=== PATIENT | male | born 1955 | race American Indian/Alaskan Native ===

== ENCOUNTER 2022-05-14 21:49 | Emergency (ER) | payer MEDICARE ==
[2022-05-14] MEDS ORDERED: ALBUTEROL 2.5 MG/3 ML NEBU IH ONE (22:58)
[2022-05-14] MEDS ORDERED: IPRATROPIUM 0.02% NEBU 2.5 ML IH ONE (22:58)
[2022-05-14] MEDS ORDERED: ACETAMINOPHEN 325 MG TAB PO STA (22:59)
--- NOTE | 2022-05-14 23:00 | Emergency Department Report ---
ED General Adult HPI - General Chief complaint: Dyspnea/Respdistress Stated complaint: HAYDE PUI?: No Time Seen by Provider: 05/14/22 22:52 Source: patient, RN notes reviewed Mode of arrival: Stretcher Limitations: Physical Limitation - History of Present Illness Initial comments: The patient was evaluated in the emergency department for symptoms described in the history of present illness. He/she was evaluated in the context of the global COVID-19 pandemic, which necessitated consideration that the patient might be at risk for infection with the virus that causes COVID-19. Institutional protocols and algorithms that pertain to the evaluation of patients at risk for COVID-19 are in a state of rapid change based on inform ation released by regulatory bodies including the CDC and federal and state organizations. These policies and algorithms were followed during the patient's care in the emergency department. Please note that these policies, procedures and recommendations changed on a rapid basis. This is a pleasant and cooperative 66-year-old gentleman. He has a history of asthma, COPD, CVA, and stroke. He was recently hospitalized for stroke at [facility]. He does not know if he was at [facility] or [place]. He reports left-sided hemiparesis after the stroke. Apparently, was put on oxygen prior to discharge, and is currently in a skilled nursing on home oxygen. His primary care doctor is Dr. Asya Anguiano. The patient is originally from [facility]. He also appears to have a history of congestive heart failure, with unknown ejection fraction. The patient is about 1 week status post discharge from the hospital. He is COVID-19 vaccinated, but has not received his booster. He presents to the department today with a complaint of shortness of breath. He has left-sided shoulder pain. He denies hematemesis and bright red blood per rectum. He denies headache, neck pain, chest pain, abdominal pain, right-sided weakness and numbness. As per verbal report from nursing team, reportedly received nebulizer therapy from EMS. [facility] paperwork indicates that the patient has a history of A. fib, and is currently on Eliquis -: Gradual Location: left, upper extremity Radiation: non-radiation Quality: aching Improves with: rest Worsens with: movement - Related Data Previous Rx's Medication Instructions Recorded Last Taken Type Albuterol Sulfate [Proair 90 mcg IH Q4HR PRN #2 aer.pow.ba 08/27/22 Unknown Rx Respiclick] Ipratropium (Nf) [Atrovent] 2 puff IH Q6HR PRN #1 inha 05/15/22 Unknown Rx Magnesium Oxide [Mag-Ox] 400 mg PO QDAY #30 tab 05/15/22 Unknown Rx predniSONE [Deltasone] 40 mg PO QDAY #8 tab 05/15/22 Unknown Rx Allergies Allergy/AdvReac Type Severity Reaction Status Date / Time Penicillins Allergy Rash Verified 05/14/22 22:45 ED Review of Systems ROS: Stated complaint: HAYDE Other details as noted in HPI Constitutional: malaise, weakness. denies: fever ENT: congestion. denies: dental pain Respiratory: cough, shortness of breath, SOB with exertion, SOB at rest. denies: wheezing Cardiovascular: denies: chest pain Gastrointestinal: denies: abdominal pain, hematemesis, melena, hematochezia Genitourinary: denies: dysuria Musculoskeletal: arthralgia, myalgia Neurological: weakness (Chronic) ED Past Medical Hx - Past Medical History Previous Medical History?: Yes Hx Hypertension: Yes Hx CVA: Yes Hx Asthma: Yes Hx COPD: Yes Additional medical history: LEFT HEMIPARERESIS - Surgical History Past Surgical History?: No - Social History Smoking Status: Never Smoker Substance Use Type: None - Medications Home Medications: Home Medications Medication Instructions Recorded Confirmed Last Taken Type Albuterol Sulfate [Proair 90 mcg IH Q4HR PRN #2 aer.pow.ba 05/15/22 Unknown Rx Respiclick] Ipratropium (Nf) [Atrovent] 2 puff IH Q6HR PRN #1 inha 05/15/22 Unknown Rx Magnesium Oxide [Mag-Ox] 400 mg PO QDAY #30 tab 05/15/22 Unknown Rx predniSONE [Deltasone] 40 mg PO QDAY #8 tab 05/15/22 Unknown Rx ED Physical Exam - General Limitations: Physical Limitation General appearance: alert, in no apparent distress - Head Head exam: Present: atraumatic, normocephalic - Eye Eye exam: Present: normal appearance, EOMI. Absent: nystagmus - ENT ENT exam: Present: mucous membranes dry, normal external ear exam - Neck Neck exam: Present: normal inspection, full ROM. Absent: tenderness, meningismus - Respiratory Respiratory exam: Present: decreased breath sounds. Absent: respiratory distress, wheezes, rales, rhonchi - Cardiovascular Cardiovascular Exam: Present: regular rate, normal rhythm, normal heart sounds. Absent: bradycardia, tachycardia, irregular rhythm, systolic murmur, diastolic murmur, rubs, gallop - GI/Abdominal GI/Abdominal exam: Present: soft. Absent: distended, tenderness, guarding, rebound, rigid, pulsatile mass - Rectal Rectal exam: Present: deferred - Extremities Exam Extremities exam: Present: normal inspection, full ROM (Right arm and right leg), other (2+ pulses noted in the bilateral upper and lower extremities. There is no palpable cord. negative Homans sign. Muscular compartments are soft. The pelvis is stable.). Absent: pedal edema, calf tenderness - Back Exam Back exam: Present: normal inspection. Absent: tenderness, CVA tenderness (R), CVA tenderness (L), paraspinal tenderness, vertebral tenderness - Neurological Exam Neurological exam: Present: alert, motor sensory deficit (Left-sided hemiparesis), other (There is no facial droop. The tongue is midline. EOMI. Left-sided hemiparesis. 5/5 strength right arm and right leg) - Psychiatric Psychiatric exam: Present: flat affect - Skin Skin exam: Present: warm, dry, intact, normal color. Absent: rash ED Course Vital Signs 05/14/22 05/14/22 05/14/22 21:49 23:05 23:35 Temperature 97.7 F 97.7 F Pulse Rate 77 75 Pulse Rate [ Bilateral Throughout] Respiratory 20 19 Rate Respiratory Rate [Bilateral Throughout] Blood Pressure 132/78 130/90 Blood Pressure [Left] O2 Sat by Pulse 96 93 94 Oximetry 05/15/22 05/15/22 05/15/22 00:16 01:17 03:06 Temperature Pulse Rate 77 75 Pulse Rate [ 72 Bilateral Throughout] Respiratory 18 18 Rate Respiratory 20 Rate [Bilateral Throughout] Blood Pressure Blood Pressure 116/65 116/72 [Left] O2 Sat by Pulse 97 97 Oximetry 05/15/22 05/15/22 05/15/22 05:56 06:53 07:57 Temperature Pulse Rate 67 69 78 Pulse Rate [ Bilateral Throughout] Respiratory 18 15 18 Rate Respiratory Rate [Bilateral Throughout] Blood Pressure Blood Pressure 120/82 113/78 103/73 [Left] O2 Sat by Pulse 97 98 97 Oximetry 05/15/22 09:43 Temperature Pulse Rate 57 L Pulse Rate [ Bilateral Throughout] Respiratory 17 Rate Respiratory Rate [Bilateral Throughout] Blood Pressure Blood Pressure 129/90 [Left] O2 Sat by Pulse 98 Oximetry - Reevaluation(s) Reevaluation #1: 05/14/22 23:24 Differential diagnosis, including but not limited to: COPD, CHF, pneumonia, pneumothorax, anemia, A. fib, paroxysmal, pulmonary embolism, subacute stroke Assessment and plan: 66-year-old gentleman, with chronic respiratory failure on home oxygen, who is anticoagulated on Eliquis, presenting with essentially painless shortness of breath, with exception of nontraumatic left-sided shoulder pain. On room air, saturating 88%. EKG markedly abnormal without prior for comparison. I appreciate that this patient is systemically anticoagulated. However, given hemiparesis, recent hospitalization, EKG morphology, clear lungs, we are concerned about pulmonary embolism. Do not feel that the patient can be adequately risk stratified by D- dimer alone. We will therefore obtain a CT scan of the chest. Given that patient may have a pulmonary embolism, and may require additional anticoagulation, and also had a recent stroke, we will obtain noncontrast CT scan of the brain, to assess for possible interval change, in case patient requires anticoagulation We will treat the patient's symptoms with albuterol, Atrovent, and Tylenol, and obtain x-ray of the chest and x-ray of the shoulder. We will reassess. I discussed this plan of care with the patient. He is agreeable to the plan of care 05/15/22 01:29 CT scan chest shows chronic findings. No pulmonary embolism identified Possible neoplasm suggested ct head appreciated called up skilled nursing, [facility], to ask when last took eliquis He last took Eliquis at 9 AM on May 14, 2022 Dose is 5 mg 05/15/22 01:49 I discussed the case with neurosurgery at [facility], Dr. Samuel Munguia. We discussed the patient's history, physical, laboratory studies and imaging studies and clinical impression. He has also personally evaluated this patient CT scan of the brain. He advises that this is may be a subacute hemorrhagic transformation. He advises that from his perspective, this can be adequately managed as an outpatient, presuming no change in examination, no change in CT scan of the brain. He advises repeat CT scan of the brain, [address] scan of the brain. He request call back once repeat CT scan has been obtained. He further advises that he would be very happy to see the patient in the clinic, and advises that from a neurosurgical perspective, this is most likely an incidental expected hemorrhagic transformation finding for the patient's subacute stroke. Repeat neurologic examination unchanged 05/15/22 05:37 patient resting comfortably and in no acute distress Repeat CT scan of the brain reviewed and appreciated repeat neuro exam unchanged have reached out to Dr Christine Munguia via [facility]. he has also evaluated the CT images. advises keppra or AED not necessary at this time. blood pressure acceptable at this time and does not require anti hypertensives at this time We both agree that it is reasonable and recommended to transfer the patient to [facility] at this time, for services not available at our facility. We do not have neurology critical care, or neurosurgery available for consultation at this hospital. Discussed this with the patient. He is agreeable to transfer. Case also presented to neurology critical care physician at [facility], Dr Cee Holding orders are initiated pending ambulance transfer 05/15/22 05:50 05/15/22 06:12 [facility] is called back. They advised that they now do not have an available bed, and at the moment, cannot accept the patient as a transfer. We are now reaching out to [place] to discuss 05/15/22 06:29 Discussed the patient's history, physical, laboratory studies and imaging studies and clinical impression with Dr. Morrison, critical care at [facility]. Recommends prothrombin complex concentrate, 25 units per kilogram, 1 g of Keppra, and maintenance of systolic blood pressure less than 160 mmHg systolic. She will call back after evaluating the bed availability, and evaluating the patient's images. 05/15/22 06:50 Dr Morrison advises that [facility] cannot accept as a transfer She advises that she has spoken to neuro critical care at [facility], and that they may be able to have a bed available Currently on phone/hold w [facility] transfer center 05/15/22 21:44 Reevaluation #2: 05/15/22 07:35 Discussed the patient's history, physical, laboratory studies and imaging studies and overall clinical impression with [facility] neurology critical care, Dr. Chua. She has evaluated the patient's CT scan images. She advises that it is her opinion that the first CT scan images suggested calcification, and laminar necrosis. She advises that she does not believe that for CT scan images demonstrate hemorrhage. She also advises that in evaluating the second CT scan images, she believes that hyperdensity is likely secondary to contrast. She advises that prothrombin complex concentrate may be reasonable. She is not certain as to whether or not eliquis may be continued. She is going to confer, and call back with recommendations. She believes that other the patient may be dischargeable from our emergency room, or, if necessary, may be transferred for in person neurology evaluation, which is not available for this department and ER at this time 05/15/22 07:40 Dr Chua calls back she advises that Eliquis be held for 1 week. She further advises that the patient will be set up for follow-up with [facility] neurosurgery within the next week, with Dr Willard She advises that AED therapy is not necessary. She again advises that CT scans do not represent blood, but rather the aforementioned findings. She also advises that repeat head CT, status post IV contrast after CT scan chest does not demonstrate bleeding, but rather hyperintensity from IV contrast. She reports that CT scan abnormalities directly correlate with images that she has a vailable for her direct comparison She specifically advises that this patient does not require transfer for neurosurgery or neuro critical care evaluation. She advises that from their perspective, the patient does not require admission and can be discharged with outpatient follow-up. therefore, patient will be discharged back to his skilled nursing, with treatment for COPD exacerbation, and instructions to follow-up with outpatient neurosurgery, and avoid anticoagulation. Patient observed in this ER for hours, without clinical decompensation. His repeat neurologic examination is unchanged 05/15/22 21:47 ED Medical Decision Making - Lab Data Result diagrams: 05/14/22 23:05 05/14/22 23:05 Vital Signs 05/14/22 05/14/22 21:49 23:05 Temperature 97.7 F 97.7 F Pulse Rate 77 75 Respiratory 20 19 Rate Blood Pressure 132/78 130/90 O2 Sat by Pulse 96 93 Oximetry - EKG Data -: EKG Interpreted by Pa EKG shows normal: sinus rhythm Rate: normal - EKG Data When compared to previous EKG there are: previous EKG unavailable 05/14/22 23:21 Is no prior EKG available for comparison. Sinus rhythm, with a 72 bpm rate. There is a normal axis, there is motion artifact, nonspecific T wave abnormalities, T wave inversions in the inferior leads, T wave inversions in the lateral leads. Interventricular conduction delay. QTC 4 9 3 ms. Abnormal EKG. Not a STEMI. No prior for comparison - Radiology Data Radiology results: pending, report reviewed, image reviewed CHEST 1 VIEW INDICATION / CLINICAL INFORMATION: Dyspnea. FINDINGS: SUPPORT DEVICES: None. HEART / MEDIASTINUM: No significant abnormality. LUNGS / PLEURA: No significant pulmonary or pleural abnormality. No pneumothorax. ADDITIONAL FINDINGS: No significant additional findings. IMPRESSION: 1. No acute findings. Signer Name: Fili Garcia MD Signed: 05/14/2022 10:38 PM Workstation Name: [employer]- Left shoulder 3 views INDICATION: Left shoulder pain IMPRESSION: No fracture or subluxation of the left shoulder is identified. Signer Name: Fili Garcia MD Signed: 05/14/2022 10:38 PM Workstation Name: [id number] CTA CHEST WITH IV CONTRAST INDICATION: Acute shortness of breath, recent stroke. TECHNIQUE: Axial CT images were obtained through the chest after injection of 100 mL Omnipaque 350 IV contrast. 3 plane MIP reconstructions were produced. All CT scans at this location are performed using CT dose reduction for ALARA by means of automated exposure control. COMPARISON: None available. FINDINGS: PULMONARY ARTERIES: No pulmonary emboli. AORTA AND ARTERIES: No acute abnormality. MEDIASTINUM: There is severe adenopathy involving both jeffrey but right is worse than left.. LUNGS: Emphysema. There is a 7 mm nodule identified within the right upper lobe on image 70 of series 2 Linear densities are noted within the right lower lung there is scarring involving both apices. ADDITIONAL FINDINGS: None. UPPER ABDOMEN: No acute findings. BONES: No significant osseous abnormality. IMPRESSION: 1. No CT evidence for pulmonary embolism. 2. Severe bilateral hilar adenopathy, right worse than left. Underlying neoplasm is suspected. 3. Severe emphysema. There is a spiculated nodule measuring 7 mm within the right upper lobe on image 70 suspicious for lung neoplasm. PET/CT suggested for further evaluation. 4. Linear opacities within both lower lungs are suspicious for scarring. Signer Name: Fili Garcia MD Signed: 05/14/2022 11:57 PM Workstation Name: [facility] [address] [place] [address] Cat Scan Report Signed Patient: MAUREEN KEYS MR#: [id number] 8 : 1955 Acct:[id number] Age/Sex: 66 / M ADM Date: 05/14/22 Loc: ED Attending Dr: Ordering Physician: AJIT TA MD Date of Service: 05/14/22 Procedure(s): CT head/brain wo con Accession Number(s): [id number] cc: AJIT TA MD CT head without contrast INDICATION : Stroke 1 week ago with left-sided hemiparesis. TECHNIQUE: Axial imaging performed from the skull apex through the skull base without the use of contrast. All CT examinations performed at this facility utilize dose modulation, iterative r econstruction or weight-based dosing, when appropriate, to reduce radiation dose to as low as reasonably achievable. COMPARISON: None FINDINGS: There is a tiny area of deep right matter subcortical hypodensity measuring 4 mm within the right frontal lobe just lateral to the right lateral ventricle. This is immediately adjacent to some asymmetric subcortical white matter hypodensity. This hyperdensity is concerning for a deep subcortical white matter hemorrhage possibly subacute. No extra-axial collection is identified. There is mild diffuse cerebral atrophy. The paranasal sinuses are clear and the orbits are grossly unremarkable. IMPRESSION: Focal 4 mm hyperdensity within the deep subcortical white matter of the right frontal lobe suspicious for small hemorrhage, possibly subacute. There is some suspicio us adjacent subcortical white matter hypodensities within the right frontal lobe that are suspicious for subacute infarct. MRI of the brain with diffusion-weighted imaging would be useful for further evaluation. CRITICAL RESULT: Right frontal lobe infarct with small subcortical white matter hemorrhage. Time of Discovery: 12:10 AM central time Time of Communication: 12:12 AM central time Licensed Practitioner Receiving Report: Dr. Ta Read Back Performed: Yes. Signer Name: Fili Garcia MD Signed: 05/15/2022 1:14 AM Workstation Name: [id number] Transcribed By: BC Dictated By: Fili Garcia MD Electronically Authenticated By: Fili Garcia MD Signed Date/Time: 05/15/22 0114 DD/ 0105 TD/TT: [facility] [address] [place] [address] Cat Scan Report Signed Patient: MAUREEN KEYS MR#: [id number] 8 : 1955 Acct:[id number] Age/Sex: 66 / M ADM Date: 05/14/22 Loc: ED Attending Dr: Ordering Physician: AJIT TA MD Date of Service: 05/15/22 Procedure(s): CT head/brain wo con Accession Number(s): [id number] cc: AJIT TA MD CT head without contrast INDICATION : Worsening strokelike symptoms TECHNIQUE: Axial imaging performed from the skull apex through the skull base without the use of contrast. All CT examinations performed at this facility utilize dose modulation, iterative reconstruction or weight-based dosing, when appropriate, to reduce radiation dose to as low as reasonably achievable. COMPARISON: 05/15/2022 FINDINGS: There has been rapid progressive development of cortical as well as subcortical hyperdensity throughout the distribution of the severe right MCA distribution infarct consistent with hemorrhagic transformation. There is slight increase in edema identified within the right cerebrum with slight mass effect on the right lateral ventricle in the interim. No significant hemispheric shift is currently identified. The paranasal sinuses are clear. The orbits are unremarkable. IMPRESSION: Significant progression of hemorrhagic conversion of the large right MCA distribution infarct when compared to the immediately prior exam, as above COMMUNICATION: Time of Communication: 4:30 AM's Central time Licensed Practitioner Receiving Report: Dr. Ta Signer Name: Fili Garcia MD Signed: 05/15/2022 5:40 AM Workstation Name: [id number] Transcribed By: BC Dictated By: Fili Garcia MD Electronically Authenticated By: Fili Garcia MD Signed Date/Time: 05/15/22 0540 DD/ 0536 TD/TT: Critical Care Time: Yes Critical care time in (mins) excluding proc time.: 75 Critical care attestation.: If time is entered above; I have spent that time in minutes in the direct care of this critically ill patient, excluding procedure time. ED Disposition Clinical Impression: Shortness of breath, Hemiparesis affecting left side as late effect of stroke, History of stroke, Left shoulder pain, Hypomagnesemia, Abnormal CT scan, chest, Abnormal CT of brain Disposition: 03 SNF FACILITY Is pt being admited?: No Does the pt Need Aspirin: No Condition: Good Additional Instructions: Do not take eliquis medication/aspirin, Plavix, Coumadin, Xarelto, Motrin, ibuprofen, or any kind of blood thinners whatsoever. Patient is to follow-up with neurosurgery within the next week at [facility], Dr. Willard [facility] should be contacted with appointment details, but we also recommend that skilled nursing contact [facility] appointments line, to clarify and confirm appo intment with outpatient neurosurgery. Patient most likely has a COPD exacerbation. Do not take metformin medication for the next 2 days, if patient takes this medication. CT scan of the chest showed no blood clot in the lungs, and suggested emphysema. Nonemergent incidental abnormal findings were noted, and should be followed up by either primary care doctor or soap tender within the next month. It is important to follow-up for outpatient CT scan chest findings to exclude cancer, tumor, malignancy. Please follow-up with a primary care doctor or soap tender within the next week. Please follow-up with a neurosurgeon within the next week. Please return to the emergency room right away with new pain, worsened pain, migration of pain, projectile vomiting, change in mental status, confusion, inability tolerate liquid feeds, new, worsened or different symptoms not present on the initial emergency room evaluation Dr Willard [facility] at [address] [place] [address] [address] [place] [address] Get Directions [phone] Prescriptions: Ipratropium (Nf) [Atrovent] 2 puff IH Q6HR PRN #1 inha PRN Reason: Wheezing predniSONE [Deltasone] 40 mg PO QDAY #8 tab Magnesium Oxide [Mag-Ox] 400 mg PO QDAY #30 tab Albuterol Sulfate [Proair Respiclick] 90 mcg IH Q4HR PRN #2 aer.pow.ba PRN Reason: Wheezing Referrals: ASYA ANGUIANO MD [Primary Care Provider] - 3-5 Days MIGUEL PANDYA MD [Staff Physician] - 3-5 Days
[2022-05-14 23:26] LABS: Basophils # (Auto) 0.1 K/mm3 (0.0-0.1); Basophils % (Auto) 1.3 % (0.0-1.8); Eosinophils # (Auto) 0.1 K/mm3 (0.0-0.4); Hematocrit 37.3 % (35.5-45.6); Hemoglobin 12.2 gm/dl (11.8-15.2); Lymphocytes # (Auto) 0.9 K/mm3 (1.2-5.4); Lymphocytes % (Auto) 17.6 % (13.4-35.0); Mean Corpuscular HGB Conc 33 % (32-34); Mean Corpuscular Volume 86 fl (84-94); Monocytes # (Auto) 0.8 K/mm3 (0.0-0.8); Monocytes % (Auto) 14.5 % (0.0-7.3); Platelet Count 169 K/mm3 (140-440); Red Blood Count 4.35 M/mm3 (3.65-5.03); Red Cell Distribution Width 18.2 % (13.2-15.2)
[2022-05-14 23:35] LABS: INR 0.97 (0.87-1.13)
[2022-05-14 23:36] LABS: Partial Thromboplastin Time 32.5 Sec. (24.2-36.6)
--- NOTE | 2022-05-14 23:42 | XRay Report ---
Left shoulder 3 views INDICATION: Left shoulder pain IMPRESSION: No fracture or subluxation of the left shoulder is identified. Signer Name: Fili Garcia MD Signed: 05/14/2022 11:38 PM Workstation Name: [email or web address]
--- NOTE | 2022-05-14 23:42 | XRay Report ---
CHEST 1 VIEW INDICATION / CLINICAL INFORMATION: Dyspnea. FINDINGS: SUPPORT DEVICES: None. HEART / MEDIASTINUM: No significant abnormality. LUNGS / PLEURA: No significant pulmonary or pleural abnormality. No pneumothorax. ADDITIONAL FINDINGS: No significant additional findings. IMPRESSION: 1. No acute findings. Signer Name: Fili Garcia MD Signed: 05/14/2022 11:38 PM Workstation Name: [email or web address]
[2022-05-14 23:52] LABS: Alanine Aminotransferase 17 units/L (7-56); Albumin 3.5 g/dL (3.9-5); BUN/Creatinine Ratio 19; Blood Urea Nitrogen 21 mg/dL (9-20); Calcium 9.8 mg/dL (8.4-10.2); Hemolysis Index 39
[2022-05-14] MEDS ORDERED: MAGNESIUM OXIDE 400 MG TAB PO STA (23:58)
--- NOTE | 2022-05-15 01:01 | Cat Scan Report ---
CTA CHEST WITH IV CONTRAST INDICATION: Acute shortness of breath, recent stroke. TECHNIQUE: Axial CT images were obtained through the chest after injection of 100 mL Omnipaque 350 IV contrast. 3 plane MIP reconstructions were produced. All CT scans at this location are performed using CT dose reduction for ALARA by means of automated exposure control. COMPARISON: None available. FINDINGS: PULMONARY ARTERIES: No pulmonary emboli. AORTA AND ARTERIES: No acute abnormality. MEDIASTINUM: There is severe adenopathy involving both jeffrey but right is worse than left.. LUNGS: Emphysema. There is a 7 mm nodule identified within the right upper lobe on image 70 of series 2 Linear densities are noted within the right lower lung there is scarring involving both apices. ADDITIONAL FINDINGS: None. UPPER ABDOMEN: No acute findings. BONES: No significant osseous abnormality. IMPRESSION: 1. No CT evidence for pulmonary embolism. 2. Severe bilateral hilar adenopathy, right worse than left. Underlying neoplasm is suspected. 3. Severe emphysema. There is a spiculated nodule measuring 7 mm within the right upper lobe on image 70 suspicious for lung neoplasm. PET/CT suggested for further evaluation. 4. Linear opacities within both lower lungs are suspicious for scarring. Signer Name: Fili Garcia MD Signed: 05/15/2022 12:57 AM Workstation Name: [email or web address]
--- NOTE | 2022-05-15 01:19 | Cat Scan Report ---
CT head without contrast INDICATION : Stroke 1 week ago with left-sided hemiparesis. TECHNIQUE: Axial imaging performed from the skull apex through the skull base without the use of con trast. All CT examinations performed at this facility utilize dose modulation, iterative reconstruct ion or weight-based dosing, when appropriate, to reduce radiation dose to as low as reasonably achiev able. COMPARISON: None FINDINGS: There is a tiny area of deep right matter subcortical hypodensity measuring 4 mm within the right frontal lobe just lateral to the right lateral ventricle. This is immediately adjacent to some asymmetric subcortical white matter hypodensity. This hyperdensity is concerning for a deep subcorti tc white matter hemorrhage possibly subacute. No extra-axial collection is identified. There is mild diffuse cerebral atrophy. The paranasal sinuse s are clear and the orbits are grossly unremarkable. IMPRESSION: Focal 4 mm hyperdensity within the deep subcortical white matter of the right frontal lob e suspicious for small hemorrhage, possibly subacute. There is some suspicious adjacent subcortical w celena matter hypodensities within the right frontal lobe that are suspicious for subacute infarct. MRI of the brain with diffusion-weighted imaging would be useful for further evaluation. CRITICAL RESULT: Right frontal lobe infarct with small subcortical white matter hemorrhage. Time of Discovery: 12:10 AM central time Time of Communication: 12:12 AM central time Licensed Practitioner Receiving Report: Dr. Ta Read Back Performed: Yes. Signer Name: Fili Garcia MD Signed: 05/15/2022 1:14 AM Workstation Name: [id number]
--- NOTE | 2022-05-15 05:44 | Cat Scan Report ---
CT head without contrast INDICATION : Worsening strokelike symptoms TECHNIQUE: Axial imaging performed from the skull apex through the skull base without the use of con trast. All CT examinations performed at this facility utilize dose modulation, iterative reconstruct ion or weight-based dosing, when appropriate, to reduce radiation dose to as low as reasonably achiev able. COMPARISON: 05/15/2022 FINDINGS: There has been rapid progressive development of cortical as well as subcortical hyperdensit y throughout the distribution of the severe right MCA distribution infarct consistent with hemorrhagi c transformation. There is slight increase in edema identified within the right cerebrum with slight mass effect on the right lateral ventricle in the interim. No significant hemispheric shift is curren tly identified. The paranasal sinuses are clear. The orbits are unremarkable. IMPRESSION: Significant progression of hemorrhagic conversion of the large right MCA distribution inf arct when compared to the immediately prior exam, as above COMMUNICATION: Time of Communication: 4:30 AM's Central time Licensed Practitioner Receiving Report: Dr. Ta Signer Name: Fili Garcia MD Signed: 05/15/2022 5:40 AM Workstation Name: [email or web address]
[2022-05-15] MEDS ORDERED: ALBUTEROL 2.5 MG/3 ML NEBU IH PRN (05:45)
[2022-05-15] MEDS ORDERED: MORPHINE 2 MG/1 ML INJ IV PRN (05:45)
[2022-05-15] MEDS ORDERED: ONDANSETRON 4 MG/2 ML INJ IV PRN (05:45)
[2022-05-15] MEDS ORDERED: hydrALAZINE 20 MG/1 ML INJ IV PRN (05:47)
[2022-05-15] MEDS ORDERED: PROTHROMBIN COMPLEX HUMAN IV ONE (06:25)
[2022-05-15] MEDS ORDERED: levETIRAcetam 1000 MG/NS 0.75% 1,000 MG/100 ML BAG IV ONE (06:28)
--- NOTE | 2022-05-15 09:21 | Electrocardiograph Report ---
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
[2022-05-15 09:44] VITALS: BP 129/90
[2022-05-15] MEDS ORDERED: methylPREDNISolone Sod Succinate 40 MG/1 ML INJ IV SCH (10:00)
== END 2022-05-15 09:37 ==
LOC: ED 21:49
DX: R06.02 Shortness of breath (principal); G81.94 Hemiplegia, unspecified affecting left nondominant side; M25.512 Pain in left shoulder; E83.42 Hypomagnesemia; R93.5 Abnormal findings on diagnostic imaging of other abdominal regions, including retroperitoneum; R93.89 Abnormal findings on diagnostic imaging of other specified body structures; I10 Essential (primary) hypertension; J45.909 Unspecified asthma, uncomplicated; Z86.73 Personal history of transient ischemic attack (TIA), and cerebral infarction without residual deficits; Z88.0 Allergy status to penicillin; Z79.899 Other long term (current) drug therapy
CPT/HCPCS: 36415; 70450; 71045; 71275; 73030; 80053; 83735; 84484; 85025; 85379; 85610; 85730; 93005; 94640; 96365; 96366; 96375; 99291; J1953; J2270; J7195; Q9967; 94644; 99285